=== PATIENT | female | born 1995 | race Caucasian/White ===

== ENCOUNTER 2024-11-22 17:49 | Emergency (ER) | payer SELFPAY ==
[~2024-11-22] VITALS: Ht 157.5 cm; Wt 68.0 kg
[2024-11-22 17:53] VITALS: O2SAT 99
[2024-11-22 17:57] VITALS: BP 106/63; PULSE 83; RESP 18; TEMP 36.7; O2SAT 96
== END 2024-11-22 18:42 | disposition left against medical advice (07) ==
LOC: ER 17:49
DX: M54.50 Low back pain, unspecified (principal); Z53.21 Procedure and treatment not carried out due to patient leaving prior to being seen by health care provider